=== PATIENT | male | born 1985 | race Caucasian/White ===

== ENCOUNTER → 2018-01-03 | Outpatient (CLI) | payer OTHER ==
--- NOTE | 2018-01-03 17:20 | DIAGNOSTIC IMAGING REPORT ---
L-SPINE MIN 4 VIEWS ROUTINE CLINICAL HISTORY: 32 years-old Male presenting with M54.5 Lumbar pain With flex and extending [id number]. TECHNIQUE: Frontal, bilateral oblique, lateral, and coned in lateral views of the lumbar spine were obtained. COMPARISON: MR from 2011. FINDINGS: No scoliosis. Normal lumbar lordosis. Vertebral bodies maintain normal height and alignment. Intervertebral disc heights preserved. No radiographic evidence of a disc degenerative change. No neural foraminal narrowing. No compression deformity or subluxation. Mild stool burden in the right colon. IMPRESSION: 1. Flexion-extension views were not performed. The patient will be brought back for additional imaging. 2. Normal static radiographic evaluation of the lumbar spine. Electronically signed by: Micheal Panda M.D. 01/03/2018 5:19 PM Dictated Date/Time: 01/03/2018 2:49 PM
--- NOTE | 2018-01-04 16:27 | DIAGNOSTIC IMAGING REPORT ---
LUMBAR SPINE FLEX/EXT ONLY CLINICAL HISTORY: M54.9 [id number] COMPARISON STUDY: 01/03/2018 FINDINGS: Flexion-extension views of the lumbar spine show no evidence for subluxation. Alignment remains anatomic in all positions. IMPRESSION: Anatomic alignment in flexion and extension views. The above report was generated using voice recognition software. It may contain grammatical, syntax or spelling errors. Electronically signed by: Theodore Arana M.D. 01/04/2018 4:26 PM Dictated Date/Time: 01/04/2018 4:25 PM
== END | disposition home or self-care (01) ==
LOC: C.RAD1850 14:28
PROVIDERS: ATTEND Internal Medicine
DX: M54.9 Dorsalgia, unspecified (principal)